=== PATIENT | male | born 1950 | race Caucasian/White ===

== ENCOUNTER 2016-12-07 14:00 | Emergency (ER) | payer OTHER ==
[2013-03-19 08:06] VITALS: BMI 34.3
[~2016-12-07 14:00] MED LIST: ASPIRIN325 MG PO; LEVOTHROID112 MCG PO; LIPITOR20 MG PO; MAXZIDE-25 MG T1 TAB PO; NORCO 10/325 TA1 TA1 PO; PLAVIX75 MG PO; PRINIVIL10 MG PO
[2016-12-07 15:16] LABS: BASOPHILS 0.2 % (0-2); EOSINOPHILS 1.2 % (0-7); HEMATOCRIT 45.8 % (42.0-54.0); HEMOGLOBIN 15.6 g/dL (13.5-17.5); IMMATURE GRANULOCYTES 0.1 % (0-5); LYMPHOCYTES 21.7 % (15-50); MCH 31.6 pg (26.0-34.0); MCHC 34.1 g/dL (31.0-37.0); MCV 92.9 fL (80.0-100.0); MEAN PLATELET VOLUME 12.1 fL (7.4-10.4); MONOCYTES 10.7 % (2-11); NEUTROPHILS 66.1 % (40-80); PLATELET COUNT 136 10x3/uL (130-400); RBC 4.93 10x6/uL (4.20-6.10); RDW 14.1 % (11.5-14.5); WBC 8.3 10x3/uL (4.8-10.8)
[2016-12-07 15:24] LABS: ALBUMIN 3.9 g/dL (3.4-5.0); ANION GAP 13.5 mmol/L (8-16); BILIRUBIN - TOTAL 0.59 mg/dL (0.2-1.3); CARBON DIOXIDE 26.7 mmol/L (21.0-32.0); CREATININE - SERUM 1.3 mg/dL (0.6-1.3); POTASSIUM - SERUM 3.2 mmol/L (3.5-5.1)
[2016-12-07 20:20] LABS: APPEARANCE CLEAR (CLEAR); BILIRUBIN NEGATIVE (NEGATIVE); COLOR YELLOW (YELLOW); GLUCOSE NEGATIVE (NEGATIVE); KETONE NEGATIVE (NEGATIVE); LEUKOCYTE ESTERASE NEGATIVE (NEGATIVE); NITRITE NEGATIVE (NEGATIVE); PROTEIN NEGATIVE (NEGATIVE); UROBILINOGEN NORMAL (NORMAL)
== END 2016-12-07 21:04 | disposition home or self-care (01) ==
LOC: D.ER 14:00
PROVIDERS: Emergency Medicine
DX: R10.13 Epigastric pain (principal); K85.90 Acute pancreatitis without necrosis or infection, unspecified; I25.10 Atherosclerotic heart disease of native coronary artery without angina pectoris; E87.6 Hypokalemia

== ENCOUNTER → 2017-02-15 08:22 | Outpatient (CLI) | payer OTHER ==
[2013-03-19 08:06] VITALS: BMI 34.3
== END | disposition home or self-care (01) ==
LOC: D.US 08:22
DX: R10.9 Unspecified abdominal pain (principal)

== ENCOUNTER 2018-01-07 11:48 | Observation (INO) | payer OTHER, MEDICARE ==
[~2018-01-07] VITALS: Ht 185.4 cm; Wt 104.9 kg
[2018-01-07] VITALS (8 sets, daily range): BP systolic 103–123; BP diastolic 66–82; Ht 185.4 cm; Wt 104.9 kg
--- NOTE | ~2018-01-07 | DS ---
PATIENT:LUIS ELLIOTT III :48 MEDICAL RECORD: [id number] DISCHARGE SUMMARY ADMISSION DATE: 01/07/18 DISCHARGE DATE: 01/08/18 DATE OF SERVICE: 01/08/2018 DIAGNOSES: 1. Unstable angina. 2. PTCA and stent of LAD this admission. 3. Hypertension. 4. Hyperlipidemia. HOSPITAL COURSE: Mr. Elliott presents with anginal symptomatology, found to have single-vessel disease of the LAD. Underwent successful PTCA and stent of the LAD. Was discharged home with the addition of aspirin and Plavix to his medical regimen. Follow up with [facility] in 1 month. TRANSINT:[id number] Voice Confirmation ID: [id number] DOCUMENT ID: [id number] JUAN LOPEZ MD at 1710 CC: [id number] DICTATION DATE: 01/08/18 0939 APPAREL MANAGER: 01/08/18 1217 DIS IN 01/08/18 [id number] [place] [address]
--- NOTE | ~2018-01-07 | HP ---
PATIENT: LUIS ELLIOTT III MEDICAL RECORD: [id number] ACCOUNT: [id number] LOCATION[facility] : 48 ADMISSION DATE: 01/07/18 HISTORY AND PHYSICAL EXAMINATION DIAGNOSES: 1. Unstable angina. 2. Coronary artery disease. 3. Previous PTCA stent. 4. Hyperlipidemia. 5. Hypertension. HISTORY OF PRESENT ILLNESS: Mr. Elliott presents with unstable anginal symptomatology times 24 hours. He has had multiple episodes of chest discomfort. He continues to have episodes of chest discomfort and chest heaviness, which is just like that of his previous angina. Last cardiac intervention was 3 years ago. Troponin is normal. His EKG is with nonspecific ST-T abnormalities. OVERALL IMPRESSION: Chest pain compatible with angina, most likely he has recurrent hemodynamically significant coronary artery disease. We will proceed with coronary angiography. Further care depends upon the findings of the angiography. TRANSINT:[id number] Voice Confirmation ID: [id number] DOCUMENT ID: [id number] JUAN LOPEZ MD at 0937 CC: [id number] DICTATION DATE: 01/07/18 1550 BAND REAMER MACHINE OPERATOR: 01/07/18 1623 ADM IN [facility] [address] [place] [address]
--- NOTE | ~2018-01-07 | HEMODYNAMI ---
PATIENT:LUIS ELLIOTT III MEDICAL RECORD: [id number] : 48 LOCATION:D. D.2115 ADMISSION DATE: 01/07/18 Generatedon:01/08/20189:41 Patient name: LUIS ELLIOTT Patient #: [id number] SSN: DO B: 1950 Date of study: 01/08/2018 Page: Of Hemodynamic Procedure Report Patient Data Patient Demographics Procedure consent was obtained First Name: LUIS Gender: Male Last Name: ELXI Suffix: LAUREN Middle Initial: BAN : 1950 Patient #: [id number] Age: 67 year(s) Race: Unknown Additional ID: [id number] Contact details Address: [address] [place] [address] State: [place] City: [facility] Zip code: [address] Admission Admission Data Admission Date: 01/07/2018 Admission Time: 14:06 Room #: D.2115 Procedure Procedure Types Cath Procedure Diagnostic Procedure LHC LHC w/Coronaries FFR/IVUS Intra-Coronary IVUS Initial Sedation Charges Moderate Sedation up to 15 minutes PCI Procedure Coronary Stent Coronary Stent Initial Procedure Description Procedure Date Procedure Date: 01/08/2018 Procedure Start Time: 9:15 Procedure End Time: 9:37 Procedure Staff Name Function Casper Mayo MD Performing Physician Georgina Cazares RT Monitor Lisset Sykes RT Scrub Giovany Gonsales RN Nurse Procedure Data Cath Procedure Fluoroscopy Diagnostic fluoroscopy Total fluoroscopy Time: 5.9 time: 5.9 min min Diagnostic fluoroscopy Total fluoroscopy dose: dose: 1190 mGy 1190 mGy Contrast Material Contrast Material Type Amount (ml) Isovue 300 127 Entry Location Entry Primary Successful Side Size Upsize Upsize Entry Closure Succes sful Closure Location (Fr) 1 (Fr) 2 (Fr) Remarks Device Remarks Femoral Right 5 Fr 6 Fr Exoseal artery Short Estimated blood loss: 5 ml Diagnostic catheters Device Type Used For End Catheter Placement MULTIPACK Pigtail 5 Fr LV Angiography catheter MULTIPACK JL 4.0 5Fr Left Coronary catheter Angiography DIAGNOSTIC JL 5 5Fr Left Coronary catheter ([id number]) Angiography MULTIPACK 3DRC 5Fr Right Coronary catheter Angiography Procedure Complications No complications Procedure Medications Medication Administration Route Dosage Oxygen NC 2 l/min Lidocaine 2% added to field 20 Heparin Flush Bag added to field 2 bags (1000units/500ml NS) 0.9% NaCl I.V. 100 ml/hr Solumedrol I.V. 125 mg Pepcid I.V. 20 mg Benadryl I.V. 50 mg Versed I.V. 2 mg Fentanyl I.V. 100 mcg Versed I.V. 1 mg Fentanyl I.V. 50 mcg Heparin Bolus I.V. 4000 units Plavix P.O. 75 mg Versed I.V. 1 mg Fentanyl I.V. 50 mcg Hemodynamics Rest Heart Rate: 56 (bpm) Pressure Samples Time Site Value (mmHg) Purpose Heart Use Rate(bpm) 9:20 LV 98/-26,33 Snapshot 54 Snapshots Pre Cath Intra NCS Post Cath Vital Signs Time Heart Resp SPO2 etCO2 NIBP (mmHg) Rhythm Pain Sedation Rate (ipm) (%) (mmHg) Status Level (bpm) 9:08:55 55 19 97 25.5 136/83(106) NSR 0 (11) 10(A) , No pain 9:13:05 59 15 95 27.8 117/82(94) NSR 0 (11) 10(A) , No pain 9:17:15 54 16 95 30 123/84(101) NSR 0 (11) 10(A) , No pain 9:21:21 52 13 94 24 126/83(100) NSR 0 (11) 9(A) , No pain 9:25:29 56 14 93 20.3 120/83(103) NSR 0 (11) 9(A) , No pain 9:29:43 55 15 95 24 112/75(90) NSR 0 (11) 9(A) , No pain 9:33:53 54 13 93 23.3 116/76(100) NSR 0 (11) 9(A) , No pain 9:38:04 57 14 94 23.3 112/75(87) NSR 0 (11) 10(A) , No pain Medications Time Medication Route Dose Verified Delivered Reason Notes Effectiveness by by 9:08:26 Benadryl I.V. 50 mg Casper Buffie used for Maria Esther Gonsales RN procedure 9:09:46 Oxygen NC 2 Casper Buffie used for l/min Maria Esther Gonsales RN procedure 9:09:53 Lidocaine 2% added 20ml Casper Casper for local to vial Maria Esther Mayo MD anesthetic field 9:09:59 Heparin Flush added 2 Caspernehemiah Shirley used for Bag to bags Maria Esther Mayo MD procedure (1000units/500ml field NS) 9:10:07 0.9% NaCl I.V. 100 Casper Buffie Per physician ml/hr Maria Esther Gonsales RN 9:10:34 Solumedrol I.V. 125 Casper Buffie used for mg Maria Esther Gonsales RN procedure 9:14:23 Pepcid I.V. 20 mg Casper Buffie used for Maria Esther Gonsales RN procedure 9:18:43 Versed I.V. 2 mg Casper Botelloie for sedation Maria Esther Gonsales RN 9:18:50 Fentanyl I.V. 100 Casper Buffie for sedation mcg Maria Esther Gonsales RN 9:23:43 Versed I.V. 1 mg Casper Botelloie for sedation Maria Esther Gonsales RN 9:23:47 Fentanyl I.V. 50 Casper Buffie for sedation mcg Maria Esther Gonsales RN 9:28:15 Versed I.V. 1 mg Casper Buffie for sedation Maria Esther Gonsales RN 9:28:18 Fentanyl I.V. 50 Casper Buffie for sedation mcg Maria Esther Gonsales RN 9:31:08 Heparin Bolus I.V. 4000 Caspernehemiah Botelloie for verifie d units Maria Esther Gonsales RN anticoagulation with dr mayo 9:37:08 Plavix P.O. 75 mg Casper Botelloie for Maria Esther Gonsales RN antiplatelet therapy Procedure Log Time Note 8:51:15 Diagnostic Cath Status : Elective 8:51:31 Lisset Sykes RT(R) sent for patient. Start room use. 8:51:32 Time tracking: Regular hours (M-F 7:00 - 5:00) 8:51:36 Plan of Care:Hemodynamics will remain stable., Cardiac rhythm will remain stable., Comfort level will be maintained., Respiratory function will remain adequate., Patient/ family verbilizes understanding of procedure., Procedure tolerated without complication., Recovers from procedure without complications.. 8:56:15 Patient received from Med II to CCL 2 Alert and oriented. Tansferred to table in Supine position. 8:56:15 Warm blankets applied, and natalee hugger turned on for patient comfort. 8:56:16 Correct patient and procedure confirmed by team. 8:56:17 Signed procedure consent form obtained from patient. 8:56:18 ECG and BP/O2 sat monitors applied to patient. 9:07:48 Vital chart was started 9:07:49 Baseline sample Acquired. 9:08:11 Rhythm: sinus rhythm 9:08:13 Full Disclosure recording started 9:08:17 H&P Date Dictated: 01/08/2018 Within 30 days and on chart., H&P Addendum completed by physician on day of procedure. (MUST COMPLETE FOR ALL OUTPATIENTS). 9:08:18 Pre-procedure instructions explained to patient. 9:08:19 Pre-op teaching completed and patient verbalized understanding. 9:08:20 Family in waiting room. 9:08:21 Patient NPO since Midnight. 9:08:24 Is the patient allergic to Iodine/contrast media? Yes. 9:08:25 Was the patient premedicated? Yes 9:08:26 Benadryl 50 mg I.V. was administered by Giovany Gonsales RN; used for procedure; 9:09:39 Is patient on blood thinner?Yes 9:09:41 ACC The patient was administered the following blood thiners within the last 24 hours: ACCPlavix 9:09:43 Patient diabetic? No. 9:09:45 Previous problem with sedation/anesthesia? No ? 9:09:46 Oxygen 2 l/min NC was administered by Giovany Gonsales RN; used for procedure; 9:09:46 Snore? Yes 9:09:48 Sleep apnea? No 9:09:48 Deviated septum? No 9:09:49 Opens mouth fully? Yes 9:09:50 Sticks out tongue? Yes 9:09:52 Airway obstruction? No ? 9:09:53 Lidocaine 2% 20ml vial added to field was administered by Casper Mayo MD; for local anesthetic; 9:09:56 Dentures? Yes out 9:09:59 Heparin Flush Bag (1000units/500ml NS) 2 bags added to field was administered by Casper Mayo MD; used for procedure; 9:10:00 Pre procedure: right dorsailis pedis pulse 2+ Normal; easily identifiable; not easily obliterated 9:10:02 Pre procedure: left dorsailis pedis pulse 2+ Normal; easily identifiable; not easily obliterated 9:10:04 Patient pain scale 0/10 ?. 9:10:07 0.9% NaCl 100 ml/hr I.V. was administered by Giovany Gonsales RN; Per physician; 9:10:13 IV patent on arrival in right forearm with 0.9% NaCl at [facility]. 9:10:15 Lab results completed and on chart. 9:10:29 Right groin area was prepped with chlora-prep and draped in sterile fashion 9:10:30 Alarms reviewed by R. N. 9::30 Sharps counted by scrub and verified by R.N. 9:10:34 Solumedrol 125 mg I.V. was administered by Giovany Gonsales RN; used for procedure; 9:13:03 Physician arrived 9::04 --------ALL STOP TIME OUT------ 9:13:04 Final Timeout: patient, procedure, and site verified with staff and physician. All members of the team are in agreement. 9:13:09 Right groin site verified by team. 9:13:11 Physical assessment completed. ASA score P 2 - A patient with mild systemic disease as per Casper Mayo MD. 9:13:15 Sedation plan: IV Moderate Sedation Medication:Versed, Fentanyl 9:13:18 Use device set Femoral Dx 9:13:19 ACIST Syringe (76374) opened to sterile field. 9:13:19 Bag Decanter (2002) opened to sterile field. 9:13:20 Medline Cath Pack ([id number]) opened to sterile field. 9:13:20 DIAGNOSTIC WIRE .035 260cm J wire (136219) opened to sterile field. 9:13:22 ACIST Hand Control (44260) opened to sterile field. 9:13:22 ACIST Manifold (60824) opened to sterile field. 9:13:22 DIAGNOSTIC Multipack 5Fr catheter set ([id number]) opened to sterile field. 9:13:23 Tegaderm 4 x 4 (1626W) opened to sterile field. 9:13:24 SHEATH Prelude 5Fr 0.035 (SQF-1P-54-035) opened to sterile field. 9:14:23 Pepcid 20 mg I.V. was administered by Giovany Gonsales RN; used for procedure; 9:15:49 Procedure started. 9:15:53 Local anesthetic to right femoral artery with Lidocaine 2% by Casper Mayo MD.INITIAL ACCESS ONLY 9:16:23 Zero performed for pressure channel P1 9:18:43 Versed 2 mg I.V. was administered by Giovany Gonsales RN; for sedation; 9:18:50 Fentanyl 100 mcg I.V. was administered by Giovany Gonsales RN; for sedation; 9:19:18 A 5 Fr sheath was inserted into the Right Femoral artery 9::27 A MULTIPACK Pigtail 5 Fr catheter was advanced over the wire and used for LV Angiography. 9:20:09 LV hemodynamics recorded. 9:20:10 LV gram done using MUNOZ 9:20:13 Injector settings: Ml/sec: 5, Volume: 15, 9:20:34 EF : 50 % 9:21:07 Catheter removed. 9:21:12 A MULTIPACK JL 4.0 5Fr catheter was advanced over the wire and used for Left Coronary Angiography. 9:22:09 Catheter removed. unable to cannulate vessel. 9:22:24 A DIAGNOSTIC JL 5 5Fr catheter ([id number]) was advanced over the wire and used for Left Coronary Angiography. 9:23:06 LCA angiography performed. 9:23:09 Injector settings: Ml/sec: 3, Volume: 6, 9:23:43 Versed 1 mg I.V. was administered by Giovany Gonsales RN; for sedation; 9::45 Catheter removed. 9:23:47 Fentanyl 50 mcg I.V. was administered by Giovany Gonsales RN; for sedation; 9:23:52 A MULTIPACK 3DRC 5Fr catheter was advanced over the wire and used for Right Coronary Angiography. 9:24:06 GUIDE 6FR EBU 4.0 guide catheter (AE2VOD78) opened to sterile field. 9:24:24 CHOICE PT Extra Support 182cm wire ([id number]) opened to sterile field. 9:24:25 INFLATOR Merit BasixCompak (AD0921) opened to sterile field. 9:24:25 SHEATH 6Fr Prelude ([id number]) opened to sterile field. 9:24:41 Corydon [place] IVUS Catheter (26176L) opened to sterile field. 9:24:46 RCA angiography performed. 9::49 Injector settings: Ml/sec: 3, Volume: 6, 9:24:52 Catheter removed. 9:24:52 Proceeding to intervention. 9:24:59 Sheath upsized to a 6 Fr Short. 9:26:19 6 Fr ebu 4 guide catheter was inserted over the wire 9::24 choice pt wire advanced. 9::31 Wire advanced across lesion. 9::34 IVUS catheter advanced over wire. 9:28:15 Versed 1 mg I.V. was administered by Giovany Gonsales RN; for sedation; :28:18 Fentanyl 50 mcg I.V. was administered by Giovany Gonsales RN; for sedation; 9:31:08 Heparin Bolus 4000 units I.V. was administered by Giovany Gonsales RN; for anticoagulation; verified with dr mayo 9:31:27 IVUS pass to LAD lesion performed. 9:31:29 IVUS catheter removed over wire. 9:32:48 The INTEGRITY RX 3.0 x 18 stent ([id number]) was advanced then removed because of failure to cross lesion 9:33:25 Place stent Inflation Number: 1 A INTEGRITY RX 3.0 x 18 stent ([id number]) was prepped and advanced across the Prox LAD. The stent was deployed at 17 BERTRAND for 0:10 (min:sec). 9:34:17 Stent catheter was removed intact over wire. 9:34:17 Wire removed. 9:34:18 Guide catheter removed. 9:34:30 EXOSEAL 6Fr (EX600) opened to sterile field. 9:34:38 Sheath removed intact; hemostasis achieved with Exoseal to the Right Femoral artery. 9:34:40 Procedure ended.(Physican Out) 9:35:25 Fluoroscopy time 05.90 minutes. 9:35:29 Fluoroscopy dose: 1190 mGy 9:35:29 Flurop Dose total: 1190 9:35:33 Contrast amount:Isovue 300 127ml. 9:35:53 Sharps counted by scrub and verified by R.N. 9:35:54 Insertion/operative site no bleeding no hematoma. 9:35:57 Post-op/insertion site Right Femoral artery dressed using a 4 x 4 and Tegaderm. 9:35:59 Post right femoral artery:stable 9:36:00 Post Procedure Pulses reassessed and unchanged 9:36:03 Post procedure rhythm: unchanged. 9:36:05 Estimated blood loss: 5 ml 9:36:41 Post procedure instruction explained to patient.Patient verbalizes understanding. 9:36:42 Patient needs reinforcement of post procedure teaching. 9:37:08 Plavix 75 mg P.O. was administered by Giovany Gonsales RN; for antiplatelet therapy; 9:37:22 Procedure type changed to Cath procedure, Diagnostic procedure, LHC, LHC w/Coronaries, FFR/IVUS, Intra-Coronary IVUS Initial, Sedation Charges, Moderate Sedation up to 15 minutes, PCI procedure, Coronary Stent, Coronary Stent Initial 9:37:22 Procedure and supply charges have been captured, reviewed, submitted and are correct. 9:37:27 Procedure Complication : No complications 9:37:29 Vital chart was stopped 9:37:29 See physician's report for complete and final results. 9:37:32 Report given to Pre/Post Procedure Room. 9:37:35 Patient transfered to Pre/Post Procedure Room with Stretcher. 9:37:37 Procedure ended. 9:37:37 Full Disclosure recording stopped 9:37:44 ACC-PCI Only Patient was given prescriptions, or instructed by Casper Mayo MD to start/continue the following medications upon discharge: Plavix 9:37:45 End room use (Document Last) Intervention Summary Intervention Notes Time ActionType Lesion and Equipment Action# Pressure Duration Attributes Used 9:32:48 Discard INTEGRITY RX Stent 3.0 x 18 stent ([id number]) 9:33:25 Place stent Prox LAD INTEGRITY RX 1 17 00:10 3.0 x 18 stent ([id number]) Device Usage Item Name Manufacture Quantity Catalog Number Hospital Part Current M inimal Lot# / Charge Number Stock Stock Serial# Code ACIST Syringe Acist 1 73967 [id number] 237280 [id number] 2 0 (26661) [employer] Bag Decanter Microtek 1 192776 76407 983575 5 () Medical Inc. Medline Cath Cardinal 1 [id number] 866810 51386 237418 5 [employer] [facility] ([id number]) DIAGNOSTIC WIRE [facility] [place] 1 666203 502944 984530 264813 3 0 .035 260cm J wire (948923) ACIST Hand Acist 1 56377 162198 028889 937252 5 Control (03257) Medical Systems Inc ACIST Manifold Acist 1 75248 610109 194971 247295 5 (96833) Medical Systems Inc DIAGNOSTIC Cardinal 1 VA3353 020048 60168 361525 3 0 Multipack 5Fr Health catheter set (VF3933) Tegaderm 4 x 4 3M 1 1626W 436523 985090 884971 5 (1626W) SHEATH Prelude Merit 1 DRJ-5G-71-035 130782 800243 372202 5 5Fr 0.035 Medical (AZS-5V-46-035) MULTIPACK Cardinal 1 439122 5 Pigtail 5 Fr Health catheter MULTIPACK JL Cardinal 1 753554 5 4.0 5Fr Health catheter DIAGNOSTIC JL 5 Cardinal 1 [id number] 533481 907936 642985 5 5Fr catheter Health (021457Z) MULTIPACK 3DRC Cardinal 1 038386 5 5Fr catheter Health GUIDE 6FR EBU Medtronic 1 [id number] 544934 73075 628464 1 4.0 guide catheter ([id number]) CHOICE PT Extra [place] 1 [id number] 675365 882281 803265 5 Support 182cm Scientific wire ([id number]) INFLATOR Merit Merit 1 FZ7605 588561 877601 697950 1 5 BasixCompak Medical (BP4531) SHEATH 6Fr Merit 1 [id number] 003909 431865 826668 5 Prelude Medical ([id number]) Corydon Cory[place] 1 [id number] 473968 341002 303831 8 [place] IVUS Catheter (31020Y) INTEGRITY RX Medtronic 1 [id number] 289023 798745 487275 5 [id number] 3.0 x 18 stent ([id number]) EXOSEAL 6Fr Cardinal 1 EX600 292532 967964 488820 1 0 (EX600) Health Signature Audit [place] Stage Time Signature Unsigned Intra-Procedure 01/08/2018 Georgina Cazares 9:41:15 AM RT(R) Signatures Monitor : Georgina Cazares RT Signature : Date : Time : [address] [place] [address]
--- NOTE | ~2018-01-07 | OP ---
PATIENT NAME: LUIS ELLIOTT III MEDICAL RECORD: [id number] :48 LOCATION:[facility] ADMISSION DATE:01/07/18 SURGEON: JUAN LOPEZ MD DATE OF OPERATION: 01/08/2018 PROCEDURES: 1. PTCA stent LAD. 2. Left heart catheterization. 3. Selective coronary angiography. 4. Left ventriculogram. 5. Intravascular ultrasound. INDICATION: Unstable angina and coronary artery disease. PROCEDURE IN DETAIL: After informed consent was obtained and after a detailed description of the risks, benefits as well as alternative therapies, the patient elected to proceed with angiogram and angioplasty. The right femoral area was prepped and draped in normal sterile fashion. Right femoral artery was cannulated via modified Seldinger technique with placement of 6-Hungarian sheath. All catheters exchanged through this sheath. FINDINGS: Left ventriculogram was performed in standard 30-degree MUNOZ view, reveals good cardiac wall motion throughout all segments. Overall ejection fraction estimated 60%. SELECTIVE CORONARY ANGIOGRAPHY: 1. Left main is with no significant angiographic disease. 2. Left anterior descending has greater than 75% stenosis proximally confirmed by intravascular ultrasound. 3. Left circumflex has moderate irregularities, but no flow-limiting stenosis. 4. Right coronary is small, nondominant with no significant stenosis. PTCA STENT OF THE LAD: The stent used was a 3.0 x 18 mm Integrity. Result was 0% residual stenosis. OVERALL IMPRESSION: Successful PTCA stent of the LAD going from 75% initial stenosis to 0% residual. TRANSINT:[id number] Voice Confirmation ID: [id number] DOCUMENT ID: [id number] JUAN LOPEZ MD at 1710 CC: [id number] DICTATION DATE: 01/08/18 0940 FULL STACK PHP DEVELOPER: 01/08/18 1012 DIS IN 01/08/18 [facility] [address] [place] [address]
[2018-01-07 12:25] LABS: BASOPHILS 0.3 % (0-2); EOSINOPHILS 3.7 % (0-7); HEMATOCRIT 43.7 % (42.0-54.0); HEMOGLOBIN 14.9 g/dL (13.5-17.5); IMMATURE GRANULOCYTES 0.2 % (0-5); LYMPHOCYTES 24.3 % (15-50); MCH 32.3 pg (26.0-34.0); MCHC 34.1 g/dL (31.0-37.0); MCV 94.6 fL (80.0-100.0); MEAN PLATELET VOLUME 12.8 fL (7.4-10.4); MONOCYTES 11.7 % (2-11); NEUTROPHILS 59.8 % (40-80); PLATELET COUNT 112 10x3/uL (130-400); RBC 4.62 10x6/uL (4.20-6.10); WBC 5.9 10x3/uL (4.8-10.8)
[2018-01-07 12:47] LABS: APTT 28.4 SECONDS (22.8-39.4); INR 1.05 (0.85-1.17); PROTIME 13.3 SECONDS (11.6-15.0)
[2018-01-07 12:52] LABS: ALBUMIN 3.5 g/dL (3.4-5.0); ALKALINE PHOSPHATASE 79 U/L (46-116); ALT (SGPT) 23 U/L (10-68); BILIRUBIN - TOTAL 0.42 mg/dL (0.2-1.3); CALC OSMOLALITY 285 mosm/kg (275-300); CARBON DIOXIDE 31.2 mmol/L (21.0-32.0); CHLORIDE - SERUM 106 mmol/L (98-107); CREATININE - SERUM 1.2 mg/dL (0.6-1.3); GLUCOSE 107 mg/dL (74-106); POTASSIUM - SERUM 4.2 mmol/L (3.5-5.1); PROTEIN - SERUM 6.5 g/dL (6.4-8.2); SODIUM 143 mmol/L (136-145); UREA NITROGEN 16 mg/dL (7-18); eGFR NON AFRICAN AMERICAN 64 mL/min (90-120)
[2018-01-07 13:05] LABS: CKMB 1.2 U/L (0.0-3.6)
[2018-01-07 13:07] LABS: TROPONIN-I < 0.017 ng/mL (0.000-0.060)
[2018-01-07] MEDS ORDERED: FISH OIL 1,0001 CA1 PO (15:45)
[2018-01-07 15:48] LABS: CREATINE KINASE 80 UL (21-232)
[2018-01-07 15:55] LABS: TROPONIN-I < 0.017 ng/mL (0.000-0.060)
[2018-01-07 21:28] LABS: CKMB 0.9 U/L (0.0-3.6); CREATINE KINASE 72 UL (21-232)
[2018-01-07 21:29] LABS: TROPONIN-I < 0.017 ng/mL (0.000-0.060)
[2018-01-08] VITALS: BP 90/50
[2018-01-08 02:50] LABS: CKMB 0.9 U/L (0.0-3.6); CREATINE KINASE 67 UL (21-232)
[2018-01-08 02:53] LABS: TROPONIN-I < 0.017 ng/mL (0.000-0.060)
[2018-01-08 06:17] VITALS: BP 126/84
[2018-01-08 07:41] VITALS: BP 94/61
[2018-01-08] MEDS ORDERED: PLAVIX75 MG PO (09:59)
== END 2018-01-08 13:28 | disposition home or self-care (01) ==
LOC: D.ER 11:48 → D.CLR 14:06 → D.M2 14:06 → OBSVTIME 14:06 → D.CLR 01-08 09:55
PROVIDERS: Family Medicine
DX: I25.110 Atherosclerotic heart disease of native coronary artery with unstable angina pectoris (principal); I10 Essential (primary) hypertension; E78.5 Hyperlipidemia, unspecified

== ENCOUNTER → 2018-07-26 13:56 | Outpatient (CLI) | payer OTHER, MEDICARE ==
[2018-01-07 16:25] VITALS: BMI 30.4
[~2018-07-26 13:56] MED LIST changes: +FISH OIL 1,0001 CA1 PO; +HYDROCODON-ACE1 EAC7 PO; -LEVOTHROID112 MCG PO; +SYNTHROID150 MCG PO
[2018-07-26 15:00] LABS: AMYLASE - SERUM 87 U/L (25-115); LIPASE 977 U/L (73-393)
== END | disposition home or self-care (01) ==
LOC: D.LABREF 13:56
PROVIDERS: Family Medicine
DX: R10.10 Upper abdominal pain, unspecified (principal)

== ENCOUNTER 2018-07-26 18:21 | Inpatient (IN) | payer OTHER, MEDICARE ==
[~2018-07-26] VITALS: Ht 185.4 cm; Wt 111.1 kg
[~2018-07-26 18:21] MED LIST changes: -HYDROCODON-ACE1 EAC7 PO
[2018-07-26 20:14] LABS: BASOPHILS 0.6 % (0-2); EOSINOPHILS 4.7 % (0-7); HEMATOCRIT 44.7 % (42.0-54.0); HEMOGLOBIN 15.1 g/dL (13.5-17.5); IMMATURE GRANULOCYTES 0.4 % (0-5); LYMPHOCYTES 24.8 % (15-50); MCH 32.5 pg (26.0-34.0); MCHC 33.8 g/dL (31.0-37.0); MCV 96.1 fL (80.0-100.0); MEAN PLATELET VOLUME 12.5 fL (7.4-10.4); MONOCYTES 14.9 % (2-11); NEUTROPHILS 54.6 % (40-80); RBC 4.65 10x6/uL (4.20-6.10); RDW 14.1 % (11.5-14.5)
[2018-07-26 20:34] LABS: ALBUMIN 3.5 g/dL (3.4-5.0); BILIRUBIN - TOTAL 0.25 mg/dL (0.2-1.3); CALCIUM 8.5 mg/dL (8.5-10.1); CARBON DIOXIDE 28.5 mmol/L (21.0-32.0); CREATININE - SERUM 1.2 mg/dL (0.6-1.3); PLATELET COUNT 135 10x3/uL (130-400); POTASSIUM - SERUM 3.5 mmol/L (3.5-5.1); PROTEIN - SERUM 6.9 g/dL (6.4-8.2)
[2018-07-26 23:11] VITALS: BP 106/72; BMI 32.3
[2018-07-27 00:30] VITALS: BP 106/72
[2018-07-27 04:58] VITALS: BP 88/53
[2018-07-27 07:31] LABS: BASOPHILS 0.6 % (0-2); HEMATOCRIT 42.4 % (42.0-54.0); HEMOGLOBIN 14.1 g/dL (13.5-17.5); IMMATURE GRANULOCYTES 0.2 % (0-5); LYMPHOCYTES 29.4 % (15-50); MCH 32.2 pg (26.0-34.0); MCHC 33.3 g/dL (31.0-37.0); MCV 96.8 fL (80.0-100.0); MEAN PLATELET VOLUME 12.5 fL (7.4-10.4); MONOCYTES 12.4 % (2-11); NEUTROPHILS 52.4 % (40-80); PLATELET COUNT 122 10x3/uL (130-400); RBC 4.38 10x6/uL (4.20-6.10); RDW 14.3 % (11.5-14.5); WBC 6.2 10x3/uL (4.8-10.8)
[2018-07-27 07:53] LABS: ALBUMIN 3.1 g/dL (3.4-5.0); ALKALINE PHOSPHATASE 61 U/L (46-116); ALT (SGPT) 24 U/L (10-68); BILIRUBIN - TOTAL 0.52 mg/dL (0.2-1.3); CALC OSMOLALITY 287 mosm/kg (275-300); CALCIUM 8.1 mg/dL (8.5-10.1); CHLORIDE - SERUM 106 mmol/L (98-107); GLUCOSE 105 mg/dL (74-106); LIPASE 301 U/L (73-393); POTASSIUM - SERUM 3.5 mmol/L (3.5-5.1); PROTEIN - SERUM 6.1 g/dL (6.4-8.2); SODIUM 143 mmol/L (136-145); UREA NITROGEN 22 mg/dL (7-18); eGFR NON AFRICAN AMERICAN 79 mL/min (90-120)
[2018-07-27 07:54] LABS: AMYLASE - SERUM 58 U/L (25-115)
[2018-07-27 08:34] VITALS: BP 112/74
[2018-07-27 12:40] VITALS: BMI 32.3
[2018-07-27 15:28] VITALS: BP 116/70
[2018-07-27 21:45] VITALS: BP 116/74
[2018-07-28 04:37] VITALS: BP 168/74
[2018-07-28 05:13] LABS: BASOPHILS 0.5 % (0-2); EOSINOPHILS 4.8 % (0-7); HEMATOCRIT 42.6 % (42.0-54.0); HEMOGLOBIN 14.1 g/dL (13.5-17.5); IMMATURE GRANULOCYTES 0.2 % (0-5); MCH 31.8 pg (26.0-34.0); MCHC 33.1 g/dL (31.0-37.0); MCV 96.2 fL (80.0-100.0); MEAN PLATELET VOLUME 12.7 fL (7.4-10.4); MONOCYTES 11.4 % (2-11); NEUTROPHILS 59.1 % (40-80); PLATELET COUNT 115 10x3/uL (130-400); RBC 4.43 10x6/uL (4.20-6.10); RDW 13.7 % (11.5-14.5); WBC 6.1 10x3/uL (4.8-10.8)
[2018-07-28 05:32] LABS: ALKALINE PHOSPHATASE 65 U/L (46-116); ALT (SGPT) 21 U/L (10-68); BILIRUBIN - TOTAL 0.61 mg/dL (0.2-1.3); CALC OSMOLALITY 281 mosm/kg (275-300); CARBON DIOXIDE 26.4 mmol/L (21.0-32.0); CHLORIDE - SERUM 106 mmol/L (98-107); GLUCOSE 98 mg/dL (74-106); POTASSIUM - SERUM 3.4 mmol/L (3.5-5.1); PROTEIN - SERUM 5.9 g/dL (6.4-8.2); SODIUM 141 mmol/L (136-145); eGFR NON AFRICAN AMERICAN 79 mL/min (90-120)
[2018-07-28 05:38] LABS: UREA NITROGEN 16 mg/dL (7-18)
[2018-07-28 08:31] LABS: LIPASE 127 U/L (73-393)
[2018-07-28 08:32] LABS: AMYLASE - SERUM 43 U/L (25-115)
[2018-07-28 09:08] VITALS: BP 104/65
[2018-07-28 16:00] VITALS: BP 111/70
[2018-07-28 20:04] VITALS: Ht 185.4 cm; Wt 111.1 kg
[2018-07-29 03:00] VITALS: BP 101/58
[2018-07-29 06:55] LABS: BASOPHILS 0.6 % (0-2); EOSINOPHILS 5.5 % (0-7); HEMATOCRIT 44.6 % (42.0-54.0); HEMOGLOBIN 14.9 g/dL (13.5-17.5); IMMATURE GRANULOCYTES 0.2 % (0-5); LYMPHOCYTES 28.9 % (15-50); MCH 31.8 pg (26.0-34.0); MCHC 33.4 g/dL (31.0-37.0); MCV 95.3 fL (80.0-100.0); MEAN PLATELET VOLUME 13.2 fL (7.4-10.4); MONOCYTES 14.7 % (2-11); NEUTROPHILS 50.1 % (40-80); PLATELET COUNT 120 10x3/uL (130-400); RBC 4.68 10x6/uL (4.20-6.10); RDW 13.7 % (11.5-14.5); WBC 5.1 10x3/uL (4.8-10.8)
[2018-07-29 07:10] LABS: ALBUMIN 3.1 g/dL (3.4-5.0); ALKALINE PHOSPHATASE 65 U/L (46-116); ALT (SGPT) 22 U/L (10-68); AMYLASE - SERUM 51 U/L (25-115); BILIRUBIN - TOTAL 0.59 mg/dL (0.2-1.3); CALC OSMOLALITY 284 mosm/kg (275-300); CALCIUM 8.6 mg/dL (8.5-10.1); CARBON DIOXIDE 26.6 mmol/L (21.0-32.0); CHLORIDE - SERUM 107 mmol/L (98-107); GLUCOSE 94 mg/dL (74-106); LIPASE 127 U/L (73-393); POTASSIUM - SERUM 3.4 mmol/L (3.5-5.1); PROTEIN - SERUM 6.2 g/dL (6.4-8.2); SODIUM 143 mmol/L (136-145); UREA NITROGEN 13 mg/dL (7-18); eGFR NON AFRICAN AMERICAN 79 mL/min (90-120)
[2018-07-29 08:06] VITALS: BP 102/61
[2018-07-29 12:47] VITALS: BP 146/90
[2018-07-29] MEDS ORDERED: HYDROCODON-ACE1 EAC7 PO (13:24)
--- NOTE | 2018-07-29 13:44 | HP ---
PATIENT: LUIS ELLIOTT III MEDICAL RECORD: [id number] ACCOUNT: [id number] LOCATION:[facility] : 48 ADMISSION DATE: 07/26/18 PCP: REYNALDO OVALLE MD HISTORY AND PHYSICAL EXAMINATION DATE OF ADMISSION: 07/26/2018 HISTORY OF PRESENT ILLNESS: This is a 68-year-old white male who presented to my office complaining of "belly cramps and diarrhea" that actually started around 12:27. He has continued to have abdominal pain. It started in the left side of his abdomen and then the entire abdomen. No more upper, middle abdomen. No nausea or vomiting. No blood in his stool. He had pancreatitis in 2012. He does not drink alcohol. He is concerned about recurrence of pancreatitis. In my office, I checked a CBC and a CMP and they were all essentially normal except platelets were little low and had an amylase and lipase done that was sent over to [place] and they came back late in the day with the lipase being high at 977. I spoke to the patient about this. He was scheduled to leave on 3-week trip in a few days and it was felt it would be better to admit him for further evaluation of this pancreatitis before he embarks on a trip. I called bed control and spoke to the housing supervisor ski production and she directed me to send over the orders, I faxed them to [phone] and told the supervisor ski production that this patient needed to be directly admitted and not necessarily seen in the ER. Unfortunately, the patient was seen in the ER and had repeat labs done. PAST MEDICAL HISTORY: Again; he had pancreatitis in 2012. He has a history of high cholesterol, hypertension, coronary artery disease with stent in December of 2017. Graves' disease status post I-131 ablation, now hypothyroid. He has insomnia, seasonal allergies, chronic thrombocytopenia and was evaluated at [facility] in 2018, it was felt to be insignificant. PAST SURGICAL HISTORY: He had placement of stent for coronary artery disease. He had orbital decompression and surgery for strabismus since 2003, he has had a total of 5 eye surgeries. HOME MEDICATIONS: Levothyroxine 150 mcg once a day, Plavix 75 mg once a day, Flonase p.r.n., aspirin 325 mg once a day, atorvastatin 20 mg once a day, triamterene/hydrochlorothiazide 37.5/25 once a day. ALLERGIES: IODINE. HABITS: Former smoker. He drinks wine very occasionally. No illicit drug use. SOCIAL HISTORY: and retired. REVIEW OF SYSTEMS: GENERAL: No major weight changes. HEENT: No particular sinus or allergy problems. RESPIRATORY: He has no history of emphysema or asthma. CARDIAC: See above history with a stent placed by Dr. Mayo last year. GASTROINTESTINAL: He had pancreatitis 5 years ago. He last had a colonoscopy about 2-1/2 years ago. He did have an EGD by Dr. Caballero on 12/26/2016, this showed minimal gastritis. He had an ultrasound of his abdomen done on 02/15/2017, consistent with hepatic steatosis and gallbladder appeared normal. GENITOURINARY: No significant problems there. MUSCULOSKELETAL: Few joint aches and pains. HISTORY AND PHYSICAL [id number] LUIS ELLIOTT III NEUROLOGIC: No seizures. No migraines. PSYCHIATRIC: No depression or melancholia. PHYSICAL EXAMINATION: VITAL SIGNS: Temperature 97.4, pulse 60, respirations 18, blood pressure 130/83, O2 sat 98%. GENERAL: He does not appear in acute distress. He is awake and alert, complaining of abdominal discomfort. SKIN: Warm and dry. HEENT: Unremarkable. NECK: Supple. No JVD or bruit. HEART: Regular rate and rhythm without murmur. LUNGS: Clear. ABDOMEN: Soft. There is some generalized tenderness in the upper half of the abdomen. No guarding, no rebound, no mass. Bowel sounds are active. EXTREMITIES: No edema. RECTAL: Not done. LABORATORY DATA: In my office showed a white count of 7000, hemoglobin 15.8, hematocrit 47.6, platelets number 131,000. Comprehensive metabolic panel is all normal. His amylase was normal. His lipase was elevated at 977. ASSESSMENT: 1. Acute pancreatitis. 2. Abdominal pain. PLAN: Direct admit to [place]. We will give IV fluids. Gut rest. Pain control. Monitor his amylase and lipase. Other tests or procedures as warranted. TRANSINT:[id number] Voice Confirmation ID: [id number] DOCUMENT ID: [id number] REYNALDO OVALLE MD at 1344 CC: [id number] DICTATION DATE: 07/27/18 1150 WELDER FIRST CLASS: 07/27/18 1410 ADM IN [facility] [address] [place] [address]
[2018-07-30] VITALS: BP 148/76
[2018-07-30 04:00] VITALS: BP 114/73
[2018-07-30 08:28] VITALS: BP 114/71
[2018-07-30] MEDS ORDERED: PERCOCET 5-3251 TAB PO (08:51)
--- NOTE | 2018-07-30 09:57 | MORECARE ---
CASE MANAGEMENT DISCHARGE SUMMARY PATIENT: LUIS ELLIOTT III UNIT: [id number] ADM DATE: 07/26/18 AGE: 68 : 49 SEX: M ROOM/BED: D.2225 AUTHOR: GAGE ORTIZ PHYSICIAN: REFERRING PHYSICIAN: REYNALDO OVALLE MD DATE OF SERVICE: 07/30/18 Discharge Plan Patient Name: LUIS ELLIOTT Facility: [facility]:[place] : 1950 Planned Disposition: Home Anticipated Discharge Date: 07/30/18 Discharge Date: Expected LOS: 4 Initial Reviewer: [email or web address] Initial Review Date: 07/30/2018 Generated: 07/30/18 10:56 am Patient Name: LUIS ELLIOTT Page 40203 at 0957 All edits/amendments must be made on the electronic document DICTATION DATE: 07/30/18955 LINE DECORATOR: MIC 07/30/1856 RPT#: [id number] DC DATE: STATUS: ADM IN [facility] [address] [place] [address] END OF REPORT
--- NOTE | 2018-07-30 10:03 | MORECARE ---
CASE MANAGEMENT DISCHARGE SUMMARY PATIENT: LUIS ELLIOTT III UNIT: [id number] ADM DATE: 07/26/18 AGE: 68 : 49 SEX: M ROOM/BED: D.2225 AUTHOR: DIANA,DOC PHYSICIAN: REFERRING PHYSICIAN: REYNALDO OVALLE MD DATE OF SERVICE: 07/30/18 Discharge Plan Patient Name: LUIS ELLIOTT Facility: [facility]:[place] : 1950 Planned Disposition: Home Anticipated Discharge Date: 07/30/18 Discharge Date: Expected LOS: 4 Initial Reviewer: [email or web address] Initial Review Date: 07/30/2018 Generated: 07/30/18 11:03 am Comments DCP- Discharge Planning Updated by [email or web address]: Rosalba Rondon on 07/30/18 8:[address] Patient Name: LUIS ELLIOTT Admission Status: ER Accout number: [id number] Admission Date: 07-26-2018 : 1950 Admission Diagnosis: Attending: REYNALDO OVALLE Current LOS: 4 Anticipated DC Date: 07-30-2018 Planned Disposition: Home Primary Insurance: [facility] Discharge Planning Comments: CM met with patient and his to discuss discharge planning. Staets he lives with his . States he is independent with all ADL's and AIDL;s. Denies having any DME or needing any DME. States he does not have any outside community resources assisting in the home. Declines need for home health. No needs identified. His will drive him home on discharge. CM will continue to follow and assist with discharge planning/needs. Business Area Manager: Rosalba Rondon DCPIA - Discharge Planning Initial Assessment Updated by [email or web address]: Rosalba Rondon on 07/30/18 9:56 am * Is the patient Alert and Oriented? Yes * How many steps to enter\exit or inside your home? 0/0 * PCP Dr. Ovalle * Pharmacy [facility] * Preadmission Environment Home with Family * ADLs Independent * Equipment None * List name and contact numbers for known caregivers / representatives who currently or will assist patient after discharge: Emilia [facility] [phone] * Verbal permission to speak to the caregivers and representatives has been obtained from the patient. Yes * Community resources currently utilized None * Additional services required to return to the preadmission environment? No * Can the patient safely return to the preadmission environment? Yes * Has this patient been hospitalized within the prior 30 days at any hospital? No Last DP export: 07/30/18 8:56 am Patient Name: LUIS ELLIOTT Page 15722 at 1003 All edits/amendments must be made on the electronic document DICTATION DATE: 07/30/18 100 PROGRESSIVE DIE MAKER: MIC 07/30/18 1003 RPT#: [id number] DC DATE: STATUS: ADM IN [facility] [address] [place] [address] END OF REPORT
[2018-07-30 12:48] VITALS: BP 111/69
--- NOTE | 2018-07-30 14:03 | MORECARE ---
CASE MANAGEMENT DISCHARGE SUMMARY PATIENT: LUIS ELLIOTT III UNIT: [id number] ADM DATE: 07/26/18 AGE: 68 : 49 SEX: M ROOM/BED: D.2225 AUTHOR: GAGE ORTIZ PHYSICIAN: REFERRING PHYSICIAN: REYNALDO OVALLE MD DATE OF SERVICE: 07/30/18 Discharge Plan Patient Name: LUIS ELLIOTT Facility: [facility]:[place] : 1950 Planned Disposition: Home Anticipated Discharge Date: 07/30/18 Discharge Date: Expected LOS: 4 Initial Reviewer: [email or web address] Initial Review Date: 07/30/2018 Generated: 07/30/18 3:03 pm Comments DCP- Discharge Planning Updated by [email or web address]: Rosalba Rondon on 07/30/18 1:[address] Patient Name: LUIS ELLIOTT Encounter No: [id number] : 1950 Primary Insurance: [facility] Cognitive Match Anticipated DC Date: 07-30-2018 Planned Disposition: Home External Planned Provider: : DCP follow-up note: Patient and family in agreement with discharge plan. Declines HHS. No changes to plan. Case management will follow and assist as needed. Rosalba Rondon DCP- Discharge Planning Updated by [email or web address]: Rosalba Rondon on 07/30/18 8:[address] Patient Name: LUIS ELLIOTT Admission Status: ER Accout number: [id number] Admission Date: 07-26-2018 : 1950 Admission Diagnosis: Attending: REYNALDO OVALLE Current LOS: 4 Anticipated DC Date: 07-30-2018 Planned Disposition: Home Primary Insurance: [facility] Discharge Planning Comments: CM met with patient and his to discuss discharge planning. Staets he lives with his . States he is independent with all ADL's and AIDL;s. Denies having any DME or needing any DME. States he does not have any outside community resources assisting in the home. Declines need for home health. No needs identified. His will drive him home on discharge. CM will continue to follow and assist with discharge planning/needs. Foot Drill Operator: Rosalba Rondon DCPIA - Discharge Planning Initial Assessment Updated by [email or web address]: Rosalbacasandra Rondon on 07/30/18 9:56 am * Is the patient Alert and Oriented? Yes * How many steps to enter\exit or inside your home? 0/0 * PCP Dr. Ovalle * Pharmacy [facility] * Preadmission Environment Home with Family * ADLs Independent * Equipment None * List name and contact numbers for known caregivers / representatives who currently or will assist patient after discharge: [facility] - [phone] * Verbal permission to speak to the caregivers and representatives has been obtained from the patient. Yes * Community resources currently utilized None * Additional services required to return to the preadmission environment? No * Can the patient safely return to the preadmission environment? Yes * Has this patient been hospitalized within the prior 30 days at any hospital? No Last DP export: 07/30/18 9:03 am Patient Name: LUIS ELLIOTT Page 51864 at 1403 All edits/amendments must be made on the electronic document DICTATION DATE: 07/30/18 1403 TRACK LAYING SUPERVISOR: MIC 07/30/18 1403 RPT#: [id number] DC DATE: STATUS: ADM IN [facility] [address] [place] [address] END OF REPORT
--- NOTE | 2018-07-31 16:36 | MORECARE ---
CASE MANAGEMENT DISCHARGE SUMMARY PATIENT: LUIS ELLIOTT III UNIT: [id number] ADM DATE: 07/26/18 AGE: 68 : 49 SEX: M ROOM/BED: D.2225 AUTHOR: GAGE ORTIZ PHYSICIAN: REFERRING PHYSICIAN: REYNALDO OVALLE MD DATE OF SERVICE: 07/31/18 Discharge Plan Patient Name: LUIS ELLIOTT Facility: [facility]:[place] : 1950 Planned Disposition: Home Anticipated Discharge Date: 07/30/18 Discharge Date: 07/30/2018 Expected LOS: 4 Initial Reviewer: [email or web address] Initial Review Date: 07/30/2018 Generated: 07/31/18 5:36 pm Comments DCP- Discharge Planning Updated by [email or web address]: Rosalba Rondon on 07/30/18 1:[address] Patient Name: LUIS ELLIOTT Encounter No: [id number] : 1950 Primary Insurance: [facility] [employer] Anticipated DC Date: 07-30-2018 Planned Disposition: Home External Planned Provider: : DCP follow-up note: Patient and family in agreement with discharge plan. Declines HHS. No changes to plan. Case management will follow and assist as needed. Rosalba Rondon DCP- Discharge Planning Updated by [email or web address]: Rosalba Rondon on 07/30/18 8:[address] Patient Name: LUIS ELLIOTT Admission Status: ER Accout number: [id number] Admission Date: 07-26-2018 : 1950 Admission Diagnosis: Attending: REYNALDO OVALLE Current LOS: 4 Anticipated DC Date: 07-30-2018 Planned Disposition: Home Primary Insurance: [facility] [employer] Discharge Planning Comments: CM met with patient and his to discuss discharge planning. Staets he lives with his . States he is independent with all ADL's and AIDL;s. Denies having any DME or needing any DME. States he does not have any outside community resources assisting in the home. Declines need for home health. No needs identified. His will drive him home on discharge. CM will continue to follow and assist with discharge planning/needs. Java J2Ee Lead: Rosalba Rondon DCPIA - Discharge Planning Initial Assessment Updated by [email or web address]: Rosalba Rondon on 07/30/18 9:56 am * Is the patient Alert and Oriented? Yes * How many steps to enter\exit or inside your home? 0/0 * PCP Dr. Ovalle * Pharmacy [facility] * Preadmission Environment Home with Family * ADLs Independent * Equipment None * List name and contact numbers for known caregivers / representatives who currently or will assist patient after discharge: Emilia [facility] - [phone] * Verbal permission to speak to the caregivers and representatives has been obtained from the patient. Yes * Community resources currently utilized None * Additional services required to return to the preadmission environment? No * Can the patient safely return to the preadmission environment? Yes * Has this patient been hospitalized within the prior 30 days at any hospital? No Last DP export: 07/30/18 1:03 pm Patient Name: LUIS ELLIOTT Page 52508 at 1636 All edits/amendments must be made on the electronic document DICTATION DATE: 07/31/18 1636 GIS DATABASE ADMINISTRATOR: MIC 07/31/18 1636 RPT#: [id number] DC DATE:07/30/18 STATUS: DIS IN [facility] [address] [place] [address] END OF REPORT
== END 2018-07-30 15:29 | disposition home or self-care (01) | DRG 417 ==
LOC: D.ER 18:21 → D.MS 21:36
PROVIDERS: Family Medicine; Internal Medicine Gastroenterology; Surgery; ADMIT Family Medicine
PROC: 0FT44ZZ Resection of Gallbladder, Percutaneous Endoscopic Approach (ICD-10-PCS; principal; 2018-07-29 10:30)
PROC: 0FB04ZX Excision of Liver, Percutaneous Endoscopic Approach, Diagnostic (ICD-10-PCS; 2018-07-29 10:30)
PROC: 0WQF4ZZ Repair Abdominal Wall, Percutaneous Endoscopic Approach (ICD-10-PCS; 2018-07-29 10:30)
DX: K80.12 Calculus of gallbladder with acute and chronic cholecystitis without obstruction (principal); K85.90 Acute pancreatitis without necrosis or infection, unspecified; I25.10 Atherosclerotic heart disease of native coronary artery without angina pectoris; K76.0 Fatty (change of) liver, not elsewhere classified; K42.9 Umbilical hernia without obstruction or gangrene

== ENCOUNTER → 2019-09-15 13:34 | Outpatient (CLI) | payer OTHER, MEDICARE ==
[2018-07-28 20:04] VITALS: BMI 32.3
--- NOTE | 2019-09-18 16:48 | EC ---
PATIENT:LUIS ELLIOTT III DATE OF SERVICE: 09/15/19 SEX: M MEDICAL RECORD: [id number] DATE OF : [birth year] LOCATION:[facility] AGE OF PATIENT: 69 ADMISSION DATE: 09/15/19 REFERRING PHYSICIAN: INTERPRETING PHYSICIAN: JUAN MAYO MD ECHOCARDIOGRAM REPORT ECHO CHARGES 4 ECHO COMPLETE Date: 09/15/19 CLINICAL DIAGNOSIS: CAD/CHEST PAIN/DYSPNEA ON EXERTION ECHOCARDIOGRAPHIC MEASUREMENTS (adult normal given) AC root (d.<3.7cm) 3.5 cm LV Septum d (<1.2 cm> 1.4 cm Valve Excursion 1.7 cm LV Septum (systole) 1.5 cm Left Atria (s.<4.0cm> 3.5 cm LVPW d(<1.2cm) 1.5 cm RV (d.<2.3cm) 3.8 cm LVPW (sytole) 1.6 cm LV diastole(<5.6CM) 4.6 cm MV E-F(>70mm/sec) cm LV systole 3.0 cm LVOT Diameter 1.9 cm MV exc.(>10mm) 1.1 cm Est.ejection fraction (50-75%) % DOPPLER: LVIT cm/sec A 53.0 cm/sec E 77.0 cm/sec LA cm/sec RVSP 25 mmHg LVOT 117 cm/sec AOP1/2T m/s Asc. Ao 134 cm/sec RVOT 92 cm/sec RA cm/sec PA 169 cm/sec AV Gradient Peak 7.21 mmHg AV Mean 3.54 mmHg AV Area 2.1 cm MV Gradient Peak 2.57 mmHg MV Mean 0.61 mmHg MV Area cm COMMENTS: Customs Investigator: 2 NADIR DOUGLAS Yard Manager: 1 Dr. Mayo TAPE# PACS Pericardial Effusion N DATE OF SERVICE: ECHOCARDIOGRAM FINDINGS: 1. Left ventricular chamber size is within normal limits. Left ventricular systolic function is normal at 60% to 65%. 2. Left atrium is within normal limits at 3.5 cm. Right atrium and right ventricular chamber sizes are mildly dilated. 3. Valvular structures have normal structure and motion. ECHOCARDIOGRAM REPORT [id number] LUIS ELLIOTT III 4. Doppler interrogation reveals trace mitral regurgitation, mild tricuspid regurgitation, no other valvular insufficiency or stenosis and pulmonary systolic pressure is estimated at 25 mmHg. 5. No evidence of pericardial effusion or left ventricular thrombus. TRANSINT:[id number] Voice Confirmation ID: [id number] DOCUMENT ID: [id number] JUAN MAYO MD at 1648 CC: [id number] DICTATION DATE: 09/16/19 0752 FILTER TANK TENDER HELPER HEAD: 09/16/19 0959 [facility] CLI 09/15/19 [place] [id number] [place] [id number]
== END | disposition home or self-care (01) ==
LOC: D.HCCECHO 13:34
PROVIDERS: ATTEND Internal Medicine Interventional Cardiology
DX: I25.119 Atherosclerotic heart disease of native coronary artery with unspecified angina pectoris (principal)

== ENCOUNTER → 2019-09-17 08:06 | Outpatient (CLI) | payer OTHER, MEDICARE ==
[2018-07-28 20:04] VITALS: BMI 32.3
--- NOTE | ~2019-09-17 | ST ---
PATIENT:LUIS ELLIOTT III MEDICAL RECORD: [id number] SEX: M [facility] ORDER #: ADMISSION DATE: 09/17/19 AGE OF PATIENT: 69 REFERRING PHYSICIAN: INTERPRETING PHYSICIAN: JUAN LOPEZ MD DATE OF SERVICE: 09/17/2019 PROCEDURE: Nuclear stress test. INDICATION: Angina, coronary artery disease, shortness of breath, hypertension, and hyperlipidemia. He was exercised on standard Lexiscan protocol with 33 mCi of sestamibi injected at peak stress, 11 mCi used previously for rest images. FINDINGS: Gated SPECT was not performed secondary to rejected beats. SPECT imaging: Cardiolite was used as myocardial perfusion agent. There was a mixed perfusion defect inferiorly, partially fixed, partially reversible. There is reversibility in the lateral segments. This includes the basal, mid, apical, lateral segments. The inferior defect includes the basal, mid, apical, inferior segments. The degree of myocardium between the two is large. OVERALL IMPRESSION: This is an abnormal mixed perfusion defect inferiorly, partially fixed, partially reversible, reversible ischemia laterally suggestive of hemodynamically significant coronary artery disease. TRANSINT:[id number] Voice Confirmation ID: [id number] DOCUMENT ID: [id number] JUAN LOPEZ MD CC: REYNALDO OVALLE MD [id number] DICTATION DATE: 09/19/19 0637 PROTOTYPE MACHINE OPERATOR: 09/19/19 2258 [facility] CLI 09/17/19 [place] [id number] [place] [address]
[~2019-09-17 08:06] MED LIST changes: +HYDROCODON-ACE1 EAC7 PO; +PERCOCET 5-3251 TAB PO
== END | disposition home or self-care (01) ==
LOC: D.HCCARDIO 08:06
PROVIDERS: ATTEND Internal Medicine Interventional Cardiology
DX: I25.119 Atherosclerotic heart disease of native coronary artery with unspecified angina pectoris (principal)

== ENCOUNTER 2019-09-24 09:26 | Outpatient (CLI) | payer OTHER, MEDICARE ==
[~2019-09-24] VITALS: Ht 185.4 cm; Wt 112.4 kg
--- NOTE | ~2019-09-24 | OP ---
PATIENT NAME: LUIS ELLIOTT III MEDICAL RECORD: [id number] :[birth year] LOCATION:[facility] ADMISSION DATE: SURGEON: JUAN LOPEZ MD DATE OF OPERATION: 09/24/2019 DATE OF SERVICE: 09/24/2019 PROCEDURES: 1. PTCA stent RCA. 2. Left heart catheterization. 3. Selective coronary angiography. 4. Left ventriculogram. INDICATION: Angina and coronary artery disease. PROCEDURE IN DETAIL: After informed consent was obtained and after detailed description of risks, benefits as well as alternative therapies, the patient elected to proceed with angiogram and angioplasty. The right femoral area was prepped and draped in normal sterile fashion. Right femoral artery was cannulated via modified Seldinger technique with placement of 6-[place] sheath. All catheters exchanged through this sheath. FINDINGS: Left ventriculogram was performed in the standard 30-degree MUNOZ view reveals good cardiac wall motion, ejection fraction estimated at 60%. SELECTIVE CORONARY ANGIOGRAPHY: 1. Left main is with no significant angiographic disease. 2. Left anterior descending has previously placed stents that are widely patent with no significant restenosis. No disease elsewise throughout the LAD or its branches. 3. Left circumflex has mild irregularities, but no flow-limiting stenosis. 4. Right coronary has a 70% to 80% stenosis in the proximal vessel. PTCA STENT OF THE RCA: The stent used was a 2.5 x 12 mm Integrity. Result was 0% residual stenosis. OVERALL IMPRESSION: Successful percutaneous transluminal coronary angioplasty stent of the right coronary artery going from 70% to 80% initial stenosis to 0% residual. TRANSINT:[id number] Voice Confirmation ID: [id number] DOCUMENT ID: [id number] JUAN LOPEZ MD CC: [id number] DICTATION DATE: 09/24/19 1215 FRONT OFFICE AGENT: 09/24/19 15[address] [place] [id number] [place] [address]
--- NOTE | ~2019-09-24 | HEMODYNAMI ---
PATIENT:LUIS ELLIOTT III MEDICAL RECORD: [id number] : 48 LOCATION:[facility] ADMISSION DATE: 09/24/19 Generatedon:09/24/201912:18 Patient name: LUIS ELLIOTT Patient #: [id number] SSN: [id number] : 1950 Date of study: 09/24/2019 Page: Of Hemodynamic Procedure Report Patient Data Patient Demographics Procedure consent was obtained First Name: LUIS Gender: Male Last Name: LEXI Suffix: LAUREN Middle Initial: BAN : 1950 Patient #: [id number] Age: 69 year(s) Race: SSN: [id number] Additional ID: [id number] Contact details Address: [address] [place] [address] State: [place] City: [facility] Zip code: [address] Past Medical History Allergies Allergen Reaction Date Comments Reported Other allergy 09/24/2019 iodine Admission Admission Data Admission Date: 09/24/2019 Admission Time: 9:26 Procedure Procedure Types Cath Procedure Diagnostic Procedure LHC LHC w/Coronaries Sedation Charges Moderate Sedation up to 15 minutes PCI Procedure Coronary Stent Coronary Stent Initial Hemochron ACT Test Procedure Description Procedure Date Procedure Date: 09/24/2019 Procedure Start Time: 12:00 Procedure End Time: 12:16 Procedure Staff Name Function Casper Mayo MD Performing Physician Lisset Sykes RT Monitor Georgina Cazares RT Scrub Giovany Gonsales RN Nurse Procedure Data Cath Procedure Fluoroscopy Diagnostic fluoroscopy Total fluoroscopy Time: 3 time: 3 min min Diagnostic fluoroscopy Total fluoroscopy dose: dose: 1057 mGy 1057 mGy Contrast Material Contrast Material Type Amount (ml) Isovue 300 90 Entry Location Entry Primary Successful Side Size Upsize Upsize Entry Closure Succes sful Closure Location (Fr) 1 (Fr) 2 (Fr) Remarks Device Remarks Femoral Right 5 Fr 6 Fr Exoseal artery Short Estimated blood loss: 10 ml Diagnostic catheters Device Type Used For End Catheter Placement MULTIPACK Pigtail 5 Fr Ventriculography catheter MULTIPACK JL 4.0 5Fr Procedure catheter MULTIPACK 3DRC 5Fr Procedure catheter DIAGNOSTIC JL 5 5Fr Procedure catheter ([id number]) Procedure Complications No complications Procedure Medications Medication Administration Route Dosage Oxygen etCO2 Nasal cannula 2 l/min Lidocaine 2% added to field 20 Heparin Flush Bag added to field 2 bags (1000units/500ml NS) 0.9% NaCl I.V. 100 ml/hr Versed I.V. 2 mg Fentanyl I.V. 100 mcg Heparin Bolus I.V. 4000 units Integrilin (Bolus I.V. 10.2 ml 2mg/ml) Versed I.V. 2 mg Fentanyl I.V. 100 mcg Versed I.V. 2 mg Fentanyl I.V. 100 mcg Plavix P.O. 600 mg Hemodynamics Rest Heart Rate: 70 (bpm) Snapshots Pre Cath Intra NCS Post Cath Vital Signs Time Heart Resp SPO2 etCO2 NIBP (mmHg) Rhythm Pain Sedation Rate (ipm) (%) (mmHg) Status Level (bpm) 11:50:04 62 17 99 23.2 133/95(113) NSR 0 (11) 10(A) , No pain 11:54:22 74 15 96 29.2 110/78(92) NSR 0 (11) 10(A) , No pain 11:58:30 66 13 94 34.5 116/77(90) NSR 0 (11) 10(A) , No pain 12:02:42 62 15 95 0 116/74(96) NSR 0 (11) 10(A) , No pain 12:06:51 69 15 93 12.7 118/81(97) NSR 0 (11) 9(A) , No pain 12:11:05 68 16 92 35.3 129/74(92) NSR 0 (11) 9(A) , No pain 12:15:21 66 15 93 36 121/77(92) NSR 0 (11) 10(A) , No pain Medications Time Medication Route Dose Verified Delivered Reason Notes Effectiveness by by 11:54:19 Oxygen etCO2 2 Casper Adair used for Nasal l/min Maria Esther Gonsales farmworker cranberry cannula 11:54:27 Lidocaine 2% added 20ml Casper Shirley for local to vial Maria Esther Mayo MD anesthetic field 11:54:34 Heparin Flush added 2 Casper Casper used for Bag to bags Maria Esther Mayo MD procedure (1000units/500ml field NS) 11:54:43 0.9% NaCl I.V. 100 Casper Buffie Per physician ml/hr Maria Esther Gonsales RN 12:00:25 Versed I.V. 2 mg Casper [place] for sedation Maria Esther Gonsales RN 12:00:31 Fentanyl I.V. 100 Casper [place] for sedation mcg Maria Esther Gonsales RN 12:04:50 Versed I.V. 2 mg Casper [place] for sedation Maria Esther Gonsales RN 12:04:53 Fentanyl I.V. 100 Casper [place] for sedation mcg Maria Esther Gonsales RN 12:06:12 Heparin Bolus I.V. 4000 Casper [place] for units Maria Esther Gonsales RN anticoagulation 12:07:22 Integrilin I.V. 10.2 Casper [place] for (Bolus 2mg/ml) ml Maria Esther Gonsales RN antiplatelet therapy 12:09:44 Versed I.V. 2 mg Casper [place] for sedation Maria Esther Gonsales RN 12:09:48 Fentanyl I.V. 100 Casper [place] for sedation mcg Maria Esther Gonsales RN 12:15:31 Plavix P.O. 600 Casper Adair for mg Maria Esther Gonsales RN antiplatelet therapy Procedure Log Time Note 11:39:24 Informed consent obtained and on chart 11:40:56 Diagnostic Cath Status : Elective 11:41:12 Giovany Gonsales RN sent for patient. Start room use. 11:41:12 Time tracking: Regular hours (M-F 7:00 - 5:00) 11:41:16 Plan of Care:Hemodynamics will remain stable., Cardiac rhythm will remain stable., Comfort level will be maintained., Respiratory function will remain adequate., Patient/ family verbilizes understanding of procedure., Procedure tolerated without complication., Recovers from procedure without complications.. 11:43:41 Warm blankets applied, and natalee hugger turned on for patient comfort. 11:43:46 Correct patient and procedure confirmed by team. 11:43:48 ECG and BP/O2 sat monitors applied to patient. 11:44:02 H&P Date Dictated: 09/11/2019 Within 30 days and on chart., H&P Addendum completed by physician on day of procedure. (MUST COMPLETE FOR ALL OUTPATIENTS). 11:44:04 Pre-procedure instructions explained to patient. 11:44:06 Family in waiting room. 11:44:09 Patient NPO since Midnight. 11:44:32 Patient allergic to Other allergyiodine 11:44:34 Is the patient allergic to Iodine/contrast media? Yes. 11:44:36 Was the patient premedicated? Yes 11:44:37 Is patient on blood thinner?No 11:44:55 Snore? Yes 11:45:10 Patient diabetic? No. 11:45:16 Sleep apnea? No 11:45:24 Patient pain scale 0/10 ?. 11:45:42 IV patent on arrival in left forearm with 0.9% NaCl at [facility]. 11:47:14 Lab results completed and on chart. 11:48:10 Stress Test: yes; abnormal multi 11:48:57 Vital chart was started 11:53:21 Risk of Mortality: .1 11:53:24 Risk of blood transfusion: .2 11:53:26 Risk of SARMAD: .7 11:53:31 Right groin area was prepped with chlora-prep and draped in sterile fashion 11:53:32 Alarms reviewed by R. N. 11:53:32 Sharps counted by scrub and verified by R.N. 11:53:36 Baseline sample Acquired. 11:53:40 Rhythm: sinus rhythm 11:53:41 Full Disclosure recording started 11:54:19 Oxygen 2 l/min etCO2 Nasal cannula was administered by Giovnay Gonsales RN; used for procedure; Verbal order read back and verified. 11:54:27 Lidocaine 2% 20ml vial added to field was administered by Casper Mayo MD; for local anesthetic; Verbal order read back and verified. 11:54:34 Heparin Flush Bag (1000units/500ml NS) 2 bags added to field was administered by Casper Mayo MD; used for procedure; Verbal order read back and verified. 11:54:43 0.9% NaCl 100 ml/hr I.V. was administered by Giovany Gonsales RN; Per physician; Verbal order read back and verified. 11:57:43 Use device set Femoral Dx 11:57:45 ACIST Syringe (36558) opened to sterile field. 11:57:46 Bag Decanter (2002) opened to sterile field. 11:57:46 Medline Cath Pack ([id number]) opened to sterile field. 11:57:47 ACIST Hand Control (96253) opened to sterile field. 11:57:48 ACIST Manifold (97900) opened to sterile field. 11:57:49 DIAGNOSTIC Multipack 5Fr catheter set ([id number]) opened to sterile field. 11:57:49 Tegaderm 4 x 4 (1626W) opened to sterile field. 11:57:51 SHEATH 5FR Loma (MDQ794) opened to sterile field. 11:57:51 EMERALD Guide Wire (395-616) opened to sterile field. 11:59:15 Physician arrived 11:59:15 --------ALL STOP TIME OUT------ 11:59:16 Final Timeout: patient, procedure, and site verified with staff and physician. All members of the team are in agreement. 11:59:18 Right groin site verified by team. 11:59:21 Fire Safety Assessment: A--An alcohol-based skin anteseptic being used preoperatively., C--Open oxygen or nitrous oxide is being used., D--An ESU, laser, or fiber-optic light is being used. 11:59:26 Physical assessment completed. ASA score P 3 - A patient with severe systemic disease as per Casper Mayo MD. 11:59:30 2) 60-89 Mildly reduced kidney function, and other findings (as for stage 1) point to kidney disease. 11:59:34 Maximum allowable contrast dose (3.7 X eGFR X 0.75)177 ml. 11:59:38 Sedation plan: IV Moderate Sedation Medication:Versed, Fentanyl 12:00:25 Versed 2 mg I.V. was administered by Giovany Gonsales RN; for sedation; Verbal order read back and verified. 12:00:31 Fentanyl 100 mcg I.V. was administered by Giovany Gonsales RN; for sedation; Verbal order read back and verified. 12:00:49 Procedure started. 12:00:56 Local anesthetic to right femoral artery with Lidocaine 2% by Casper Mayo MD.INITIAL ACCESS ONLY 12:01:04 A 5 Fr sheath was inserted into the Right Femoral artery 12:01:09 J wire advanced. 12:01:23 A MULTIPACK Pigtail 5 Fr catheter was advanced over the wire and used for Ventriculography. 12:01:26 LV angiography performed. 12:02:35 EF : 55 % 12:02:42 Catheter removed. 12:02:49 A MULTIPACK JL 4.0 5Fr catheter was advanced over the wire and used for Procedure. 12:03:06 Catheter removed. 12:03:23 unable to cannulate artery 12:03:30 A MULTIPACK 3DRC 5Fr catheter was advanced over the wire and used for Procedure. 12:03:34 RCA angiography performed. 12:04:49 Catheter removed. 12:04:50 Versed 2 mg I.V. was administered by Giovany Gonsales RN; for sedation; Verbal order read back and verified. 12:04:53 Fentanyl 100 mcg I.V. was administered by Giovany Gonsales RN; for sedation; Verbal order read back and verified. 12:05:14 A DIAGNOSTIC JL 5 5Fr catheter ([id number]) was advanced over the wire and used for Procedure. 12:05:18 CHOICE PT Extra Support 182cm wire ([id number]) opened to sterile field. 12:05:19 INFLATOR Merit BasixCompak (XG9281) opened to sterile field. 12:05:19 SHEATH 6FR Loma (JHO608) opened to sterile field. 12:05:33 LCA angiography performed. 12:05:40 Catheter removed. 12:05:42 Proceeding to intervention. 12:05:50 Sheath upsized to a 6 Fr Short. 12:06:12 Heparin Bolus 4000 units I.V. was administered by Giovany Gonsales RN; for anticoagulation; Verbal order read back and verified. 12:06:45 Pre PCI Site: [place] mRCA has 80% stenosis. 12:07:22 Integrilin (Bolus 2mg/ml) 10.2 ml I.V. was administered by Giovany Gonsales RN; for antiplatelet therapy; Verbal order read back and verified. 12:07:30 6 Fr AR1sh guide catheter was inserted over the wire 12:07:43 GUIDE 6FR AR 1.0 SH catheter ([id number]) opened to sterile field. 12:07:51 Wire advanced across lesion. 12:09:42 Place stent Inflation Number: 1 A INTEGRITY RX 2.5 x 12 stent ([id number]) was prepped and advanced across the Mid RCA 80. The stent was deployed at 11 BERTRAND for 0:08 (min:sec) . 12:09:44 Versed 2 mg I.V. was administered by Giovany Gonsales RN; for sedation; Verbal order read back and verified. 12:09:48 Fentanyl 100 mcg I.V. was administered by Giovany Gonsales RN; for sedation; Verbal order read back and verified. 12:10:10 EXOSEAL 6Fr (EX600) opened to sterile field. 12:10:15 Wire removed. 12:10:16 Guide catheter removed. 12:13:35 Sheath removed intact; hemostasis achieved with Exoseal to the Right Femoral artery. 12:13:38 Procedure ended.(Physican Out) 12:13:48 Fluoroscopy time 03.00 minutes. 12:13:54 Fluoroscopy dose: 1057 mGy 12:13:54 Flurop Dose total: 1057 12:14:00 Dose Area Product 55669 mGy/cm. 12:14:07 Contrast amount:Isovue 300 90ml. 12:14:13 Maximum allowable dose exceeded? No. 12:14:17 Sharps counted by scrub and verified by R.N. 12:14:19 Insertion/operative site no bleeding no hematoma. 12:14:22 Post-op/insertion site Right Femoral artery dressed using a 4 x 4 and Tegaderm. 12:14:24 Post Procedure Pulses reassessed and unchanged 12:14:27 Post-procedure physical assessment completed. ASA score P 3 - A patient with severe systemic disease as per Casper Mayo MD. 12:14:31 Post procedure rhythm: sinus rhythm 12:14:34 Estimated blood loss: 10 ml 12:14:36 Post procedure instruction explained to patient.Patient verbalizes understanding. 12:15:16 ACT drawn and resulted at 215 seconds. (normal therapeutic range 180-240 seconds). 12:15:30 Procedure type changed to Cath procedure, Diagnostic procedure, LHC, LHC w/Coronaries, Sedation Charges, Moderate Sedation up to 15 minutes, PCI procedure, Coronary Stent, Coronary Stent Initial, Hemochron ACT Test 12:15:31 Plavix 600 mg P.O. was administered by Giovany Gonsales RN; for antiplatelet therapy; Verbal order read back and verified. 12:15:32 Procedure and supply charges have been captured, reviewed, submitted and are correct. 12:15:52 Procedure Complication : No complications 12:15:55 Vital chart was stopped 12:15:58 [facility] Findings: MVD- PCI performed (see procedure note) 12:16:00 Operative report dictated upon procedure completion. 12:16:01 See physician's report for complete and final results. 12:16:03 Report given to Pre/Post Procedure Room. 12:16:08 Patient transfered to Pre/Post Procedure Room with Stretcher. 12:16:10 Procedure ended. 12:16:10 Full Disclosure recording stopped 12:16:39 ACC-PCI Only Patient was given prescriptions, or instructed by Casper Mayo MD to start/continue the following medications upon discharge: Plavix 12:16:41 End room use (Document Last) 12:16:59 End room use (Document Last) 12:17:46 End room use (Document Last) Intervention Summary Intervention Notes Time ActionType Lesion and Equipment Action# Pressure Duration Attributes Used 12:09:42 Place stent Mid RCA INTEGRITY RX 1 11 00:09 2.5 x 12 stent ([id number]) Device Usage Item Name Manufacture Quantity Catalog Number Hospital Part Current Mini [facility] Lot# / Charge Number Stock Stock Serial# Code ACIST Acist 1 88627 754928 724320 644550 20 Syringe Medical (89656) Systems Inc Bag Decanter Microtek 1 2002S 227192 71386 485818 5 (2001S) Medical Inc. Medline Cath Medline 1 [id number] 826588 59844 589711 5 Pack ([id number]) ACIST Hand Acist 1 82562 608897 428724 462797 5 Control Medical (49032) Systems Inc ACIST Acist 1 58071 735112 933581 961293 5 Manifold Medical (19932) Systems Inc DIAGNOSTIC Cardinal 1 FW8480 854056 72912 696837 30 Multipack Cortica 5Fr catheter set (RP6957) Tegaderm 4 x 3M 1 1626W 709083 663364 223076 5 4 (1626W) SHEATH 5FR Terumo 1 TGL050 873260 511971 819233 5 [place] (UIP959) EMERALD Cardinal 1 502-455 032540 708302 371308 5 Guide Wire [facility] (362-337) MULTIPACK Cardinal 1 558098 5 Pigtail 5 Fr Health catheter MULTIPACK JL Cardinal 1 448096 5 4.0 5Fr Health catheter MULTIPACK Cardinal 1 014075 5 3DRC 5Fr Health catheter DIAGNOSTIC Cardinal 1 [id number] 199884 579196 043938 5 JL 5 5Fr Health catheter (366647J) CHOICE PT [place] 1 [id number] 687179 625646 665766 5 Extra Scientific Support 182cm wire ([id number]) INFLATOR Merit 1 AS1361 021985 984674 957275 15 Merit Medical BasixCompak (CM9733) SHEATH 6FR Terumo 1 DIQ553 729467 040170 446776 40 [place] (HGJ925) GUIDE 6FR AR Medtronic 1 [id number] 498328 99960 196352 1 1.0 SH catheter ([id number]) INTEGRITY RX Medtronic 1 [id number] 737788 185163 445302 5 [id number] 2.5 x 12 stent ([id number]) EXOSEAL 6Fr Cardinal 1 EX600 216910 924688 772406 10 (EX600) Health Signature Audit Leonidas Stage Time Signature Unsigned Intra-Procedure 09/24/2019 Lisset Sykes 12:16:59 PM RT(R) Intra-Procedure 09/24/2019 Giovany Gonsales RN 12:17:46 PM Intra-Procedure 09/24/2019 Casper Mayo 12:18:15 PM Signatures Performing Physician : Signature : Casper Mayo MD Date : Time : Monitor : Lisset Sykes Signature : RT Date : Time : Nurse : Giovany Gonsales RN Signature : Date : Time : [facility] [address] [place], [place] [id number]
[2019-09-24] MEDS ORDERED: MULTI-DAY VITAM1 TAB PO (09:51)
[2019-09-24 10:09] VITALS: BP 129/78; Ht 185.4 cm; Wt 112.4 kg
[2019-09-24 10:34] LABS: ANION GAP 13.5 mmol/L (8-16); CARBON DIOXIDE 26.2 mmol/L (21.0-32.0); CREATININE - SERUM 1.2 mg/dL (0.6-1.3); LDL-HDL RATIO 1.8 ratio (1.5-3.5); POTASSIUM - SERUM 3.7 mmol/L (3.5-5.1)
[2019-09-24 10:50] LABS: BASOPHILS 0.1 % (0-2); EOSINOPHILS 0 % (0-7); HEMATOCRIT 46.6 % (42.0-54.0); HEMOGLOBIN 16.2 g/dL (13.5-17.5); IMMATURE GRANULOCYTES 0.3 % (0-5); LYMPHOCYTES 8.7 % (15-50); MCH 32.9 pg (26.0-34.0); MCHC 34.8 g/dL (31.0-37.0); MCV 94.7 fL (80.0-100.0); MEAN PLATELET VOLUME 12.5 fL (7.4-10.4); MONOCYTES 5.5 % (2-11); NEUTROPHILS 85.4 % (40-80); RBC 4.92 10x6/uL (4.20-6.10); RDW 13.2 % (11.5-14.5); WBC 10.6 10x3/uL (4.8-10.8)
[2019-09-24 10:55] LABS: PLATELET COUNT 145 10x3/uL (130-400)
[2019-09-24] MEDS ORDERED: PLAVIX75 MG PO (12:28)
== END 2019-09-24 16:10 | disposition home or self-care (01) ==
LOC: D.CATH 09:26
PROVIDERS: ATTEND Internal Medicine Interventional Cardiology
DX: I25.119 Atherosclerotic heart disease of native coronary artery with unspecified angina pectoris (principal); I10 Essential (primary) hypertension; E78.5 Hyperlipidemia, unspecified; R06.09 Other forms of dyspnea

== ENCOUNTER → 2020-12-10 07:35 | Outpatient (CLI) | payer OTHER, MEDICARE ==
[2019-09-24 10:09] VITALS: BMI 32.6
[~2020-12-10 07:35] MED LIST changes: +MULTI-DAY VITAM1 TAB PO
== END | disposition home or self-care (01) ==
LOC: D.RAD 07:35
PROVIDERS: ATTEND Family Medicine
DX: K59.00 Constipation, unspecified (principal); R19.4 Change in bowel habit